=== PATIENT | male | born 1950 | race African-American/Black ===

== ENCOUNTER 2019-04-13 10:16 | Inpatient (IN) ==
[2019-04-13] MEDS ORDERED: ONDANSETRON 4 MG/2 ML VIAL IV PRN (14:07)
[2019-04-13] MEDS ORDERED: ALBUTEROL 2.5 MG/3 ML NEB RESP TX PRN (14:07)
[2019-04-13] MEDS ORDERED: LEVOFLOXACIN INJ 500 MG in PREMIX 1 EACH IV SCH (14:30)
[2019-04-13 15:24] LABS: Allen Test Positive; Pt O2 Delivery Device CPAP
[2019-04-13 15:25] LABS: ABG Base Excess 8.5 MMOL/L (-2.5-2.5); ABG HCO3 32.3 MMOL/L (20-26); ABG Oxygen Saturation 99.3 % (95-100); ABG PCO2 66.5 MM HG (35-48); ABG PH 7.349 (7.35-7.45)
[2019-04-13 15:27] LABS: Lymphocytes # 0.9 10*3/uL (1.4-4.0)
[2019-04-13 15:45] LABS: Basophils % 0.4 % (0.0-0.8); Eosinophils # 0.1 10*3/uL (0.0-0.87); Eosinophils % 1.1 % (0.00-10.9); Hematocrit 39.9 VOL% (42.0-52.0); Hemoglobin 11.6 GM/DL (14.0-18.0); Immature Granulocytes % 0.4 %; Immature Granulocytes Absolute 0.03 #; Lymphocytes % 13.1 % (21.2-54.2); Mean Corpuscular HGB Conc 29.1 GM/DL (32-36); Mean Corpuscular Volume 92.1 FL (87-102); Platelet Count 141 T/CUMM (130-400); Red Blood Count 4.33 MC/CUMM (3.8-5.5); Red Cell Distribution Width 15.6 % (9.3-17.3); White Blood Count 7.1 T/CUMM (4-12)
[2019-04-13 15:50] LABS: Albumin 3.3 G/DL (3.4-5.0); Bilirubin,Total 0.4 MG/DL (0.2-1.0); Calcium 9.3 MG/DL (8.5-10.1); Osmolality,Calculated 289.7 MOS/KG (273-304); Total Protein 7.9 G/DL (6.4-8.3)
[2019-04-13] MEDS: FUROSEMIDE 40 MG/4 ML VIAL IV SCH (16:17)
[2019-04-13] MEDS: FAMOTIDINE 20 MG/2 ML VIAL IV SCH (16:17)
[2019-04-13] MEDS: ENOXAPARIN 40 MG/0.4 ML SYRINGE SUBCUT SCH (16:33)
[2019-04-13] MEDS: VANCOMYCIN INJ 1,250 MG in SODIUM CHLORIDE 0.9% 250 ML IV SCH (17:41)
[2019-04-13] MEDS: PIPERACILLIN/TAZOBACTAM 3,375 MG in SODIUM CHLORIDE 0.9% 100 ML IV SCH (18:57)
[2019-04-13] MEDS: ALBUTEROL/IPRATROPIUM 3 ML NEB RESP TX SCH (19:52)
[2019-04-14] MEDS: PIPERACILLIN/TAZOBACTAM 3,375 MG in SODIUM CHLORIDE 0.9% 100 ML IV SCH (01:37)
[2019-04-14] MEDS: ALBUTEROL/IPRATROPIUM 3 ML NEB RESP TX SCH ×4 (01:57→19:30)
[2019-04-14] MEDS: ENOXAPARIN 40 MG/0.4 ML SYRINGE SUBCUT SCH ×2 (03:04→15:07)
[2019-04-14] MEDS: FAMOTIDINE 20 MG/2 ML VIAL IV SCH ×2 (03:04→15:08)
[2019-04-14 04:59] LABS: Osmolality,Calculated 292.6 MOS/KG (273-304)
[2019-04-14 05:03] LABS: Basophils % 0.4 % (0.0-0.8); Eosinophils # 0.1 10*3/uL (0.0-0.87); Eosinophils % 0.9 % (0.00-10.9); Hematocrit 35.2 VOL% (42.0-52.0); Immature Granulocytes % 0.4 %; Immature Granulocytes Absolute 0.03 #; Lymphocytes # 0.9 10*3/uL (1.4-4.0); Lymphocytes % 12.9 % (21.2-54.2); Mean Corpuscular HGB Conc 30.1 GM/DL (32-36); Mean Corpuscular Volume 90.3 FL (87-102); Mean Platelet Volume 12.1 FL (9.6-12.0); Monocytes % 8.1 % (1.7-12.7); Neutrophils % 77.3 % (38.7-73.9); Platelet Count 145 T/CUMM (130-400); Red Cell Distribution Width 15.5 % (9.3-17.3); White Blood Count 6.8 T/CUMM (4-12)
[2019-04-14 05:04] LABS: Hemoglobin 10.6 GM/DL (14.0-18.0)
[2019-04-14] MEDS: VANCOMYCIN INJ 1,250 MG in SODIUM CHLORIDE 0.9% 250 ML IV SCH (05:35)
[2019-04-14] MEDS: FUROSEMIDE 40 MG/4 ML VIAL IV SCH ×2 (09:15→17:57)
[2019-04-14] MEDS: predniSONE 20 MG TABLET PO SCH (10:40)
[2019-04-14] MEDS: LEVOFLOXACIN 500 MG TABLET PO SCH (10:40)
[2019-04-14] MEDS: amLODIPine 10 MG TABLET PO SCH (15:18)
[2019-04-15] MEDS: ALBUTEROL/IPRATROPIUM 3 ML NEB RESP TX SCH ×4 (01:36→19:23)
[2019-04-15 05:10] LABS: Calcium 9.1 MG/DL (8.5-10.1); Osmolality,Calculated 285.8 MOS/KG (273-304)
[2019-04-15] MEDS: FAMOTIDINE 20 MG/2 ML VIAL IV SCH ×2 (06:32→16:22)
[2019-04-15] MEDS: LEVOFLOXACIN 500 MG TABLET PO SCH (08:53)
[2019-04-15] MEDS: predniSONE 20 MG TABLET PO SCH (08:53)
[2019-04-15] MEDS: amLODIPine 10 MG TABLET PO SCH (08:54)
[2019-04-15] MEDS: FUROSEMIDE 40 MG/4 ML VIAL IV SCH ×2 (08:54→16:25)
[2019-04-15] MEDS: ENOXAPARIN 40 MG/0.4 ML SYRINGE SUBCUT SCH (09:03)
[2019-04-16] MEDS: ALBUTEROL/IPRATROPIUM 3 ML NEB RESP TX SCH ×4 (00:15→19:46)
[2019-04-16] MEDS: FAMOTIDINE 20 MG/2 ML VIAL IV SCH ×2 (01:30→16:26)
[2019-04-16] MEDS: amLODIPine 10 MG TABLET PO SCH (08:39)
[2019-04-16] MEDS: LEVOFLOXACIN 500 MG TABLET PO SCH (08:39)
[2019-04-16] MEDS: predniSONE 20 MG TABLET PO SCH (08:40)
[2019-04-16] MEDS: FUROSEMIDE 40 MG/4 ML VIAL IV SCH ×2 (08:40→16:43)
[2019-04-16] MEDS: ENOXAPARIN 40 MG/0.4 ML SYRINGE SUBCUT SCH (08:40)
[2019-04-16] MEDS: FLUTICASONE 50 MCG NASAL SPRAY 16 GM BOTTLE BOTH NARES SCH (13:30)
[2019-04-16 14:02] LABS: INR 1.1
[2019-04-16] MEDS ORDERED: ACETAMINOPHEN 500 MG TABLET PO PRN (18:02)
[2019-04-16] MEDS ORDERED: VANCOMYCIN INJ 1,250 MG in SODIUM CHLORIDE 0.9% 250 ML IV SCH (21:00)
[2019-04-17] MEDS: ALBUTEROL/IPRATROPIUM 3 ML NEB RESP TX SCH ×3 (00:57→12:35)
[2019-04-17] MEDS: FAMOTIDINE 20 MG/2 ML VIAL IV SCH ×2 (02:30→16:43)
[2019-04-17] MEDS: predniSONE 20 MG TABLET PO SCH (09:19)
[2019-04-17] MEDS: LEVOFLOXACIN 500 MG TABLET PO SCH (09:20)
[2019-04-17] MEDS: ENOXAPARIN 40 MG/0.4 ML SYRINGE SUBCUT SCH (09:20)
[2019-04-17] MEDS: amLODIPine 10 MG TABLET PO SCH (09:20)
[2019-04-17] MEDS: FUROSEMIDE 40 MG/4 ML VIAL IV SCH ×2 (09:23→16:43)
[2019-04-17] MEDS: FLUTICASONE 50 MCG NASAL SPRAY 16 GM BOTTLE BOTH NARES SCH (09:25)
[2019-04-17 16:10] VITALS: BP 156/83
== END 2019-04-17 18:28 | DRG 291 ==
LOC: N.CC 13:04 → SUATTDRO 13:04 → N.4E 04-14 16:19
PROVIDERS: ADMIT Internal Medicine; ATTEND Internal Medicine
PROC: IRTHORA (2019-04-16 15:14)

== ENCOUNTER 2019-10-29 22:10 | Inpatient (IN) ==
[2019-10-29] MEDS ORDERED: LIDOCAINE 2% TOP JELLY 20 ML VIAL INTRAURETH ONE (23:19)
[2019-10-30 03:08] LABS: Apearance,Urine CLOUDY (Clear); Bacteria,Urine Many /HPF (Few); Bilirubin,Urine Negative (Negative); Blood, Urine Large mg/dL (Negative); Glucose,Urine (UA) Negative (Negative); Ketones,Urine Negative (Negative); Mucus,Urine Occasional /LPF (Occasional); Nitrite,Urine Negative (Negative); Protein,Urine 100 MG/DL; RBC,Urine 2154 /HPF (0-4); Urine Color Yellow (Yellow); Urine Specific Gravity 1.045 (1.001-1.035); WBC,Urine 8939 /HPF (0-6)
[2019-10-30] MEDS ORDERED: ACETAMINOPHEN 325 MG TABLET PO PRN (03:30)
[2019-10-30] MEDS ORDERED: ONDANSETRON 4 MG/2 ML VIAL IV PRN (03:30)
[2019-10-30] MEDS ORDERED: BISACODYL 10 MG SUPP RECTAL PRN (03:30)
[2019-10-30] MEDS ORDERED: ALBUTEROL 2.5 MG/3 ML NEB RESP TX PRN (03:30)
[2019-10-30] MEDS ORDERED: hydrALAZINE 20 MG/1 ML VIAL IV PRN (03:30)
[2019-10-30] MEDS ORDERED: DEXTROSE 50% 25 GM/50 ML SYRINGE IV PRN (03:30)
[2019-10-30] MEDS ORDERED: GLUCAGON 1 MG VIAL IM PRN (03:30)
[2019-10-30] MEDS ORDERED: LEVOFLOXACIN INJ 750 MG in PREMIX 1 EACH IV SCH (04:00)
[2019-10-30] MEDS: SODIUM CHLORIDE 0.9% 1,000 ML IV SCH ×2 (04:03→18:40)
[2019-10-30] MEDS: LEVOFLOXACIN INJ 750 MG in PREMIX 1 EACH IV SCH (04:09)
[2019-10-30 06:49] LABS: Basophils % 0.2 % (0.0-0.8); Hemoglobin 10.8 GM/DL (14.0-18.0); Immature Granulocytes % 2.2 %; Immature Granulocytes Absolute 0.51 #; Lymphocytes % 4.4 % (21.2-54.2); Mean Corpuscular Volume 89.8 FL (87-102); Mean Platelet Volume 11.2 FL (9.6-12.0); Monocytes % 7.8 % (1.7-12.7); Neutrophils % 85.4 % (38.7-73.9); Platelet Count 171 T/CUMM (130-400); Red Blood Count 4.01 MC/CUMM (3.8-5.5); Red Cell Distribution Width 16.3 % (9.3-17.3)
[2019-10-30] MEDS: ALBUTEROL/IPRATROPIUM 3 ML NEB RESP TX SCH ×3 (07:05→20:01)
[2019-10-30 07:16] LABS: Band Neutrophils 12 % (0-10); Lymphocytes 8 % (20-55); Metamyelocytes 3 %; Segmented Neutrophils 71 % (50-85); Total Cells Counted 100
[2019-10-30 07:18] LABS: Hypochromasia 1+; Microcytosis 1+
[2019-10-30 07:19] LABS: Platelet Estimate Adequate
[2019-10-30 07:30] LABS: Albumin 2.6 G/DL (3.4-5.0); Bilirubin,Total 0.9 MG/DL (0.2-1.0); Calcium 9.5 MG/DL (8.5-10.1)
[2019-10-30] MEDS: INSULIN LISPRO 100 UNIT/ML SUBCUT SCH ×4 (07:43→22:45)
[2019-10-30] MEDS ORDERED: amLODIPine 10 MG TABLET PO SCH (09:00)
[2019-10-30] MEDS ORDERED: lisinopriL 20 MG TABLET PO SCH (09:00)
[2019-10-30] MEDS ORDERED: FUROSEMIDE 20 MG TABLET PO SCH (09:00)
[2019-10-30] MEDS ORDERED: hydrALAZINE 25 MG TABLET PO SCH (09:00)
[2019-10-30] MEDS ORDERED: minoxidiL 2.5 MG TABLET PO SCH (09:00)
[2019-10-30] MEDS ORDERED: atenoloL 50 MG TABLET PO SCH (09:00)
[2019-10-30] MEDS: POTASSIUM CHLORIDE 20 MEQ TABLET PO SCH ×2 (10:32→22:20)
[2019-10-30] MEDS: sitaGLIPtin 100 MG TABLET PO SCH (10:33)
[2019-10-30] MEDS: SENNA 8.6 MG TABLET PO SCH ×2 (10:33→22:19)
[2019-10-30] MEDS: ESCITALOPRAM 10 MG TABLET PO SCH (10:33)
[2019-10-30] MEDS: MULTIVITAMIN (CENTRUM) TABLET PO SCH (10:33)
[2019-10-30] MEDS: DIVALPROEX SPRINKLE 125 MG CAPSULE PO SCH (10:33)
[2019-10-30] MEDS: ENOXAPARIN 40 MG/0.4 ML SYRINGE SUBCUT SCH (10:34)
[2019-10-30] MEDS: POLYETHYLENE GLYCOL POWDER 17 GM PACK PO SCH (10:34)
[2019-10-30] MEDS: clonazePAM 0.5 MG TABLET PO SCH ×2 (10:34→22:20)
[2019-10-30] MEDS: PANTOPRAZOLE 40 MG TABLET PO SCH (10:36)
[2019-10-30] MEDS: DIVALPROEX ER 250 MG TABLET PO SCH (22:19)
[2019-10-30] MEDS: MELATONIN 3 MG TABLET PO SCH (22:19)
[2019-10-30] MEDS: LATANOPROST 0.005% OPH SOLN 2.5 ML BOTTLE BOTH EYES SCH (22:45)
[2019-10-31] MEDS: ALBUTEROL/IPRATROPIUM 3 ML NEB RESP TX SCH ×4 (02:03→19:57)
[2019-10-31] MEDS: LEVOFLOXACIN INJ 750 MG in PREMIX 1 EACH IV SCH (05:35)
[2019-10-31 06:53] LABS: Basophils % 0.1 % (0.0-0.8); Eosinophils % 0.2 % (0.00-10.9); Hematocrit 34.9 VOL% (42.0-52.0); Hemoglobin 10.6 GM/DL (14.0-18.0); Immature Granulocytes % 4.2 %; Immature Granulocytes Absolute 0.75 #; Lymphocytes % 5.7 % (21.2-54.2); Mean Corpuscular HGB Conc 30.4 GM/DL (32-36); Mean Corpuscular Volume 87.9 FL (87-102); Mean Platelet Volume 11.3 FL (9.6-12.0); Monocytes % 8.8 % (1.7-12.7); Platelet Count 165 T/CUMM (130-400); Red Blood Count 3.97 MC/CUMM (3.8-5.5); Red Cell Distribution Width 16.1 % (9.3-17.3); White Blood Count 17.7 T/CUMM (4-12)
[2019-10-31 07:12] LABS: Calcium 8.9 MG/DL (8.5-10.1); Osmolality,Calculated 292.3 MOS/KG (273-304)
[2019-10-31 07:22] LABS: Band Neutrophils 12 % (0-10); Lymphocytes 2 % (20-55); Segmented Neutrophils 81 % (50-85); Total Cells Counted 100
[2019-10-31 07:23] LABS: Hypochromasia 1+; Microcytosis 1+
[2019-10-31 07:24] LABS: Anisocytosis 1+; Platelet Estimate Adequate
[2019-10-31] MEDS: POLYETHYLENE GLYCOL POWDER 17 GM PACK PO SCH (10:43)
[2019-10-31] MEDS: ENOXAPARIN 40 MG/0.4 ML SYRINGE SUBCUT SCH (10:43)
[2019-10-31] MEDS: MULTIVITAMIN (CENTRUM) TABLET PO SCH (10:44)
[2019-10-31] MEDS: ESCITALOPRAM 10 MG TABLET PO SCH (10:44)
[2019-10-31] MEDS: POTASSIUM CHLORIDE 20 MEQ TABLET PO SCH ×2 (10:44→22:49)
[2019-10-31] MEDS: DIVALPROEX SPRINKLE 125 MG CAPSULE PO SCH (10:44)
[2019-10-31] MEDS: clonazePAM 0.5 MG TABLET PO SCH ×2 (10:44→22:08)
[2019-10-31] MEDS: PANTOPRAZOLE 40 MG TABLET PO SCH (10:44)
[2019-10-31] MEDS: SENNA 8.6 MG TABLET PO SCH ×2 (10:45→22:09)
[2019-10-31] MEDS: sitaGLIPtin 100 MG TABLET PO SCH (10:45)
[2019-10-31] MEDS: SODIUM CHLORIDE 0.9% 1,000 ML IV SCH (10:46)
[2019-10-31] MEDS: INSULIN LISPRO 100 UNIT/ML SUBCUT SCH ×4 (18:05→22:48)
[2019-10-31] MEDS: DIVALPROEX ER 250 MG TABLET PO SCH (22:07)
[2019-10-31] MEDS: MELATONIN 3 MG TABLET PO SCH (22:09)
[2019-10-31] MEDS: LATANOPROST 0.005% OPH SOLN 2.5 ML BOTTLE BOTH EYES SCH (22:54)
[2019-11-01] MEDS: ALBUTEROL/IPRATROPIUM 3 ML NEB RESP TX SCH ×4 (00:51→20:41)
[2019-11-01] MEDS: LEVOFLOXACIN INJ 750 MG in PREMIX 1 EACH IV SCH (04:30)
[2019-11-01 06:37] LABS: Basophils % 0.2 % (0.0-0.8); Eosinophils # 0.1 10*3/uL (0.0-0.87); Eosinophils % 0.7 % (0.00-10.9); Hematocrit 33.6 VOL% (42.0-52.0); Hemoglobin 10.4 GM/DL (14.0-18.0); Immature Granulocytes % 0.9 %; Immature Granulocytes Absolute 0.15 #; Lymphocytes # 1.1 10*3/uL (1.4-4.0); Lymphocytes % 6.6 % (21.2-54.2); Mean Platelet Volume 11.5 FL (9.6-12.0); Neutrophils % 82.6 % (38.7-73.9); Platelet Count 178 T/CUMM (130-400); Red Blood Count 3.82 MC/CUMM (3.8-5.5); Red Cell Distribution Width 16.3 % (9.3-17.3); White Blood Count 16.7 T/CUMM (4-12)
[2019-11-01 06:48] LABS: Calcium 8.8 MG/DL (8.5-10.1)
[2019-11-01] MEDS: sitaGLIPtin 100 MG TABLET PO SCH (09:09)
[2019-11-01] MEDS: ENOXAPARIN 40 MG/0.4 ML SYRINGE SUBCUT SCH (09:10)
[2019-11-01] MEDS: INSULIN LISPRO 100 UNIT/ML SUBCUT SCH ×4 (09:10→20:24)
[2019-11-01] MEDS: MULTIVITAMIN (CENTRUM) TABLET PO SCH (09:10)
[2019-11-01] MEDS: DIVALPROEX SPRINKLE 125 MG CAPSULE PO SCH (09:10)
[2019-11-01] MEDS: SENNA 8.6 MG TABLET PO SCH ×2 (09:10→21:11)
[2019-11-01] MEDS: PANTOPRAZOLE 40 MG TABLET PO SCH (09:10)
[2019-11-01] MEDS: clonazePAM 0.5 MG TABLET PO SCH ×2 (09:10→21:11)
[2019-11-01] MEDS: ESCITALOPRAM 10 MG TABLET PO SCH (09:10)
[2019-11-01] MEDS: POTASSIUM CHLORIDE 20 MEQ TABLET PO SCH ×2 (10:00→21:11)
[2019-11-01] MEDS: SODIUM CHLORIDE 0.9% 1,000 ML IV SCH (11:56)
[2019-11-01] MEDS: POLYETHYLENE GLYCOL POWDER 17 GM PACK PO SCH ×2 (16:51→18:46)
[2019-11-01] MEDS: LATANOPROST 0.005% OPH SOLN 2.5 ML BOTTLE BOTH EYES SCH (21:00)
[2019-11-01] MEDS: DIVALPROEX ER 250 MG TABLET PO SCH (21:10)
[2019-11-01] MEDS: MELATONIN 3 MG TABLET PO SCH (21:11)
[2019-11-02] MEDS: ALBUTEROL/IPRATROPIUM 3 ML NEB RESP TX SCH ×4 (02:40→19:19)
[2019-11-02] MEDS: LEVOFLOXACIN INJ 750 MG in PREMIX 1 EACH IV SCH (04:50)
[2019-11-02 05:28] LABS: Basophils % 0.2 % (0.0-0.8); Eosinophils # 0.1 10*3/uL (0.0-0.87); Eosinophils % 1.2 % (0.00-10.9); Hematocrit 35.9 VOL% (42.0-52.0); Hemoglobin 10.8 GM/DL (14.0-18.0); Immature Granulocytes % 0.6 %; Immature Granulocytes Absolute 0.07 #; Lymphocytes # 1.2 10*3/uL (1.4-4.0); Lymphocytes % 10.1 % (21.2-54.2); Mean Corpuscular HGB Conc 30.1 GM/DL (32-36); Mean Corpuscular Volume 89.1 FL (87-102); Mean Platelet Volume 11.4 FL (9.6-12.0); Monocytes % 10.4 % (1.7-12.7); Neutrophils % 77.5 % (38.7-73.9); Platelet Count 198 T/CUMM (130-400); Red Blood Count 4.03 MC/CUMM (3.8-5.5); Red Cell Distribution Width 16.4 % (9.3-17.3); White Blood Count 11.4 T/CUMM (4-12)
[2019-11-02 05:44] LABS: Calcium 9.1 MG/DL (8.5-10.1); Osmolality,Calculated 289.8 MOS/KG (273-304)
[2019-11-02] MEDS: SODIUM CHLORIDE 0.9% 1,000 ML IV SCH (07:24)
[2019-11-02] MEDS: INSULIN LISPRO 100 UNIT/ML SUBCUT SCH ×4 (09:13→21:18)
[2019-11-02] MEDS: DIVALPROEX SPRINKLE 125 MG CAPSULE PO SCH (09:16)
[2019-11-02] MEDS: POLYETHYLENE GLYCOL POWDER 17 GM PACK PO SCH (09:16)
[2019-11-02] MEDS: SENNA 8.6 MG TABLET PO SCH ×2 (09:16→21:18)
[2019-11-02] MEDS: POTASSIUM CHLORIDE 20 MEQ TABLET PO SCH ×2 (09:16→21:19)
[2019-11-02] MEDS: MULTIVITAMIN (CENTRUM) TABLET PO SCH (09:16)
[2019-11-02] MEDS: ESCITALOPRAM 10 MG TABLET PO SCH (09:17)
[2019-11-02] MEDS: PANTOPRAZOLE 40 MG TABLET PO SCH (09:17)
[2019-11-02] MEDS: clonazePAM 0.5 MG TABLET PO SCH ×2 (09:17→21:17)
[2019-11-02] MEDS: ENOXAPARIN 40 MG/0.4 ML SYRINGE SUBCUT SCH (09:17)
[2019-11-02] MEDS: sitaGLIPtin 100 MG TABLET PO SCH (09:17)
[2019-11-02] MEDS: LATANOPROST 0.005% OPH SOLN 2.5 ML BOTTLE BOTH EYES SCH (21:17)
[2019-11-02] MEDS: MELATONIN 3 MG TABLET PO SCH (21:18)
[2019-11-02] MEDS: DIVALPROEX ER 250 MG TABLET PO SCH (21:23)
[2019-11-03] MEDS: ALBUTEROL/IPRATROPIUM 3 ML NEB RESP TX SCH ×3 (00:55→13:44)
[2019-11-03 04:36] LABS: Osmolality,Calculated 288.1 MOS/KG (273-304)
[2019-11-03] MEDS: LEVOFLOXACIN INJ 750 MG in PREMIX 1 EACH IV SCH (05:01)
[2019-11-03] MEDS: INSULIN LISPRO 100 UNIT/ML SUBCUT SCH ×2 (07:53→11:51)
[2019-11-03] MEDS: DIVALPROEX SPRINKLE 125 MG CAPSULE PO SCH (08:00)
[2019-11-03] MEDS: POTASSIUM CHLORIDE 20 MEQ TABLET PO SCH (08:00)
[2019-11-03] MEDS: SENNA 8.6 MG TABLET PO SCH (08:00)
[2019-11-03] MEDS: clonazePAM 0.5 MG TABLET PO SCH (08:00)
[2019-11-03] MEDS: ESCITALOPRAM 10 MG TABLET PO SCH (08:00)
[2019-11-03] MEDS: PANTOPRAZOLE 40 MG TABLET PO SCH (08:00)
[2019-11-03] MEDS: sitaGLIPtin 100 MG TABLET PO SCH (08:00)
[2019-11-03] MEDS: MULTIVITAMIN (CENTRUM) TABLET PO SCH (08:01)
[2019-11-03] MEDS: ENOXAPARIN 40 MG/0.4 ML SYRINGE SUBCUT SCH (08:01)
[2019-11-03] MEDS: POLYETHYLENE GLYCOL POWDER 17 GM PACK PO SCH (08:01)
[2019-11-03 13:23] VITALS: BP 154/83
== END 2019-11-03 14:10 | disposition home or self-care (01) | DRG 871 ==
LOC: EDBD → EDUNIT# → N.ED 22:10 → N.EDINP 10-30 02:27 → SUATTDRO 10-30 02:27 → N.5E 10-30 02:40
PROVIDERS: ADMIT Internal Medicine; ATTEND Internal Medicine Geriatric Medicine